=== PATIENT | female | born 1980 | race Caucasian/White ===

== ENCOUNTER 2024-07-05 08:21 | Day surgery (SDC) | payer BC ==
[~2024-07-05 08:21] MED LIST: Sodium Chloride 0.9% 10 ML Syringe FLUSH PRN; Sodium Chloride 0.9% 2.5 ML Syringe FLUSH PRN; Sodium Chloride 0.9% 20 ML SDV IV PRN
[2024-07-05] MEDS: Lactated Ringers 1,000 ML IV SCH (08:57)
[2024-07-05] MEDS ORDERED: propofoL 500 MG/50 ML 50 ML ONE (10:16)
[2024-07-05 11:36] VITALS: BP 105/55; PULSE 87
== END 2024-07-05 11:25 | disposition home or self-care (01) ==
LOC: MW.SDS 08:21
PROVIDERS: ATTEND Surgery
DX: Z12.11 Encounter for screening for malignant neoplasm of colon (principal); Z91.040 Latex allergy status; Z88.8 Allergy status to other drugs, medicaments and biological substances
CPT/HCPCS: 45378; 81025; J2704; J7120; 00812